=== PATIENT | female | born 1940 | race Caucasian/White ===

== ENCOUNTER 2016-12-22 11:56 | Emergency (ER) | payer MEDICARE, MEDICAID ==
[~2016-12-22] VITALS: Ht 160 cm; Wt 83.9 kg
[~2016-12-22 11:56] MED LIST: ACET500C4 PO; ALPR0.5T8 PO; DIPH1TAB70 PO; DULO30CA2 PO; ENAL10TA75 PO; ESOM40CA PO; FURO40TA5 PO; IBUP-1955 PO; IRON1TAB4 PO; LEVO50TA PO; MEMA10TA PO; ONDA4TAB11 PO; PANT40TA4 PO; PROP20TA22 PO; ROSU10TA PO; SUMA50TA PO; TRAM50TA2 PO; ZOLP10TA6 PO
[2016-12-22 12:01] VITALS: BP 141/71
== END 2016-12-22 12:15 | disposition home or self-care (01) ==
LOC: ER 11:58
DX: R21 Rash and other nonspecific skin eruption (principal); I10 Essential (primary) hypertension; Z88.8 Allergy status to other drugs, medicaments and biological substances
CPT/HCPCS: A4606; Z7610